=== PATIENT | male | born 1995 | race Two or more races ===

== ENCOUNTER 2016-05-23 23:47 | Emergency (ER) | payer SELFPAY ==
[~2016-05-23] VITALS: Ht 172.7 cm; Wt 74.8 kg
[2016-05-24] MEDS ORDERED: NKM
[2016-05-24] MEDS ORDERED: AMOXICILLIN500 MG ORAL (00:25)
[2016-05-24 00:27] VITALS: BP 127/73
--- NOTE | 2016-05-24 01:03 | Emergency Room Report ---
History of Present Illness General Chief Complaint: Sore Throat Source: Patient Present Illness HPI 21-year-old male presents ED for evaluation. Patient states he's had sore throat for the last 3 weeks. Intermitted cough. Cough is dry. Denies fevers or chills. Denies earache. Pain is throbbing, 8/10, worse with swallowing. Denies sick contacts or recent travel. No aggravating or relieving factors. Denies any other associated symptom Allergies: Coded Allergies: No Known Allergies (Unverified , 05/23/16) Patient History Past Medical History: none Past Surgical History: none Pertinent Family History: none Social History: Denies: alcohol use, drug use, smoking Immunizations: UTD Reviewed Nursing Documentation: PMH: Agreed, PSxH: Agreed Nursing Documentation-PMH Past Medical History: No Stated History Review of Systems All Other Systems: negative except mentioned in HPI Physical Exam Vital Signs Date Time Temp Pulse Resp B/P Pulse Ox O2 Delivery O2 Flow Rate FiO2 05/23/16 23:51 98.1 70 16 127/73 99 Room Air Sp02 EP Interpretation: reviewed, normal General Appearance: no apparent distress, alert, GCS 15, non-toxic Head: normocephalic Eyes: bilateral eye PERRL, bilateral eye normal inspection ENT: hearing grossly normal, no angioedema, normal voice, TMs + canals normal, pharyngeal erythema Neck: full range of motion, supple/symm/no masses Respiratory: chest non-tender, lungs clear, normal breath sounds, speaking full sentences Cardiovascular #1: normal inspection Gastrointestinal: normal inspection Rectal: deferred Genitourinary: no CVA tenderness Musculoskeletal: normal inspection Neurologic: alert, oriented x3, responsive, motor strength/tone normal, sensory intact, speech normal Psychiatric: normal inspection Skin: normal color Lymphatic: normal inspection Medical Decision Making Diagnostic Impression: Primary Impression: Pharyngitis Qualified Codes: J02.9 - Acute pharyngitis, unspecified ER Course Hospital Course 21-year-old male presents to ED complaining of sore throat + cougg Differential diagnoses include: URI, pharyngitis, otitis media Clinical course Patient placed on stretcher. After initial history, physical exam reveals a young male in no acute distress. Bilateral TM unremarkable. There is pharyngeal erythema w/o tonsillar exudates. No lymphadenopathy. Clinical findings consistent with pharyngitis. Reassurance given Diagnosis - pharyngitis Stable and discharged home with prescriptions for amoxicillin. Instructed to followup with PMD. return to ED if symptoms recur or worsen Last Vital Signs Date Time Temp Pulse Resp B/P Pulse Ox O2 Delivery O2 Flow Rate FiO2 05/24/16 00:27 98.1 16 127/73 99 Room Air 05/23/16 23:51 70 Status: improved Disposition: HOME, SELF-CARE Condition: Stable Scripts Amoxicillin* (AMOXIL*) 500 Mg Capsule 500 MG ORAL THREE TIMES A DAY, #21 CAP Prov: RANDELL DENG M.D. 05/24/16 Patient Instructions: Pharyngitis, [id number] RANDELL DENG M.D. May 24, 2016 01:03
== END 2016-05-24 00:27 | disposition home or self-care (01) ==
LOC: EMR 05-24 00:08
DX: J02.9 Acute pharyngitis, unspecified (principal)
CPT/HCPCS: 99283